=== PATIENT | female | born 1995 | race Two or more races ===

== ENCOUNTER 2019-10-24 10:37 | Emergency (ER) | payer BC ==
[~2019-10-24] VITALS: Ht 175.3 cm; Wt 74.7 kg
--- NOTE | 2019-10-24 11:10 | RAD ---
EXAM: CHEST AP ONLY INDICATION: Reason: sob / Spl. Instructions: / History: . TECHNIQUE: Single view COMPARISON: None FINDINGS: The heart size is normal. The great vessels appear unremarkable. There is no hilar or mediastinal mass. The lungs are clear. There is no pleural effusion or pneumothorax. There are no significant osseous abnormalities. IMPRESSION: No active cardiopulmonary disease. Electronically signed by: Vivek Mitchell MD (10/24/2019 11:07 AM) [id number]
[2019-10-24 11:38] LABS: BASO % 0 % (0-3); EOS % 0 % (0-3); HEMATOCRIT 41.5 % (36.0-47.0); HEMOGLOBIN 13.9 g/dL (12.0-15.5); LYMPH # 1.6 x10^3/uL (1.0-4.8); LYMPH % 23 % (24-48); MEAN CORPUSCULAR HEMOGLOBIN 30 pg (25-35); MEAN CORPUSCULAR HGB CONC 34 g/dL (31-37); MEAN CORPUSCULAR VOLUME 88 fL (79-100); MONO # 0.3 x10^3/uL (0.0-1.1); MONO % 5 % (0-9); NEUT # 4.9 x10^3uL (1.8-7.7); NEUT % 72 % (31-73); PLATELET COUNT 193 x10^3/uL (140-400); RED BLOOD COUNT 4.71 x10^6/uL (3.50-5.40); RED CELL DISTRIBUTION WIDTH 13.5 % (11.5-14.5); WHITE BLOOD COUNT 6.8 x10^3/uL (4.0-11.0)
[2019-10-24 11:48] LABS: CALCIUM 9.1 mg/dL (8.5-10.1); GFR 82.4; POTASSIUM 3.7 mmol/L (3.5-5.1)
[2019-10-24 11:53] LABS: ALBUMIN 4.2 g/dL (3.4-5.0); TOTAL BILIRUBIN 1.5 mg/dL (0.2-1.0); TOTAL PROTEIN 8.4 g/dL (6.4-8.2)
--- NOTE | 2019-10-24 11:58 | PHYS DOC ---
Past History Past Medical History: No Pertinent History Past Surgical History: Other Additional Past Surgical Histo: ACHILLES LEFT Alcohol Use: Rarely Adult General Chief Complaint Chief Complaint: SHORTNESS OF BREATH HPI HPI Patient is a 24 year old previously healthy female who presents with chest pressure and shortness of breath. Patient states that 5 days ago she started having this substernal chest pain. This is progressively gotten worse and initially was aching and now feels like heavy pressure on her chest. She is never had anything like this previously. She has some associated shortness of breath and feels very nervous and anxious. She states it never goes away. She denies any cough, fever, sore throat, URI symptoms. Review of Systems Review of Systems General: Denies fever, chills, sweats, fatigue Eyes: Denies drainage, blurred vision, eye redness HENT: Denies rhinorrhea, sore throat, earache Respiratory: Denies cough, wheezing reports shortness of breath Cardiac: Denies edema, palpitations. Reports chest pain GI: Denies abdominal pain, Nausea, vomiting MSK: Denies back pain, neck pain Skin: Denies rash, jaundice Neuro: Denies headache, dizziness Psychiatric: Denies SI/HI Allergies Allergies Allergies Coded Allergies Type Severity Reaction Last Updated Verified No Known Drug Allergies 10/24/19 No Physical Exam Physical Exam General: Awake, alert, NAD. Well Nourished, well hydrated. Cooperative HEENT: Atraumatic, EOMI, PERRL, airway patent, moist oral mucosa Neck: Supple, trachea midline Respiratory: CTA bilaterally, normal effort, no wheezing/crackles CV: Tachycardic, no murmur, cap refill <2 GI: Soft, nondistended, nontender, no masses MSK: No obvious deformities Skin: Warm, dry, intact Neuro: A&O x3, speech NL, sensory and motor grossly intact, no focal deficits Psych: Anxious, not suicidal or homicidal Current Patient Data Vital Signs Vital Signs Date Time Temp Pulse Resp B/P (MAP) Pulse Ox O2 Delivery O2 Flow Rate FiO2 10/24/19 11:22 92 20 124/78 (93) 98 Room Air 10/24/19 10:50 98.6 Lab Results Laboratory Tests Test 10/24/19 11:20 10/24/19 11:37 White Blood Count 6.8 x10^3/uL (4.0-11.0) Red Blood Count 4.71 x10^6/uL (3.50-5.40) Hemoglobin 13.9 g/dL (12.0-15.5) Hematocrit 41.5 % (36.0-47.0) Mean Corpuscular Volume 88 fL (79-100) Mean Corpuscular Hemoglobin 30 pg (25-35) Mean Corpuscular Hemoglobin Concent 34 g/dL (31-37) Red Cell Distribution Width 13.5 % (11.5-14.5) Platelet Count 193 x10^3/uL (140-400) Neutrophils (%) (Auto) 72 % (31-73) Lymphocytes (%) (Auto) 23 % (24-48) L Monocytes (%) (Auto) 5 % (0-9) Eosinophils (%) (Auto) 0 % (0-3) Basophils (%) (Auto) 0 % (0-3) Neutrophils # (Auto) 4.9 x10^3uL (1.8-7.7) Lymphocytes # (Auto) 1.6 x10^3/uL (1.0-4.8) Monocytes # (Auto) 0.3 x10^3/uL (0.0-1.1) Eosinophils # (Auto) 0.0 x10^3/uL (0.0-0.7) Basophils # (Auto) 0.0 x10^3/uL (0.0-0.2) Sodium Level 137 mmol/L (136-145) Potassium Level 3.7 mmol/L (3.5-5.1) Chloride Level 101 mmol/L (98-107) Carbon Dioxide Level 24 mmol/L (21-32) Anion Gap 12 (6-14) Blood Urea Nitrogen 4 mg/dL (7-20) L Creatinine 1.0 mg/dL (0.6-1.0) Estimated GFR (Cockcroft-Gault) 82.4 BUN/Creatinine Ratio 4 (6-20) L Glucose Level 124 mg/dL (70-99) H Calcium Level 9.1 mg/dL (8.5-10.1) Total Bilirubin Pending Aspartate Amino Transferase (AST) Pending Alanine Aminotransferase (ALT) Pending Alkaline Phosphatase Pending Total Protein Pending Albumin Pending Albumin/Globulin Ratio Pending POC Urine HCG, Qualitative hcg negative (Negative) EKG EKG [] Radiology/Procedures Radiology/Procedures [] Course & Med Decision Making Course & Med Decision Making Pertinent Labs and Imaging studies reviewed. (See chart for details) Patient is 24-year-old female presents to the emergency room with chest tightness and shortness of breath. Patient is tachycardic but otherwise has normal vitals. She does not have any other infectious symptoms. CBC, BMP, d- dimer, chest x-ray, test were ordered. Dragon Disclaimer Dragon Disclaimer This electronic medical record was generated, in whole or in part, using a voice recognition dictation system. Departure Departure: Impression: Primary Impression: Shortness of breath Additional Impression: Chest pain Disposition: 01 HOME/RESIDENCE PRIOR TO ADM Condition: STABLE Referrals: PCP,UNKNOWN (PCP) Justification of Admission: Justification of Admission: Justification of Admission Dx: No Problem Qualifiers RAYMON GONCALVES MD Oct 24, 2019 11:58
[2019-10-24 11:59] LABS: C REACTIVE PROTEIN 1.4 mg/L (0-3.3)
[2019-10-24 12:19] VITALS: BP 115/74
[2019-10-24] MEDS ORDERED: hydrOXYzine HCL 25 MG TABLET PO ONE (12:30)
[2019-10-24] MEDS ORDERED: KETOROLAC 30 MG/ML VIAL. IVP ONE (13:00)
[2019-10-24] MEDS ORDERED: KETOROLAC 30 MG/ML VIAL. ONE (13:03)
[2019-10-24] MEDS ORDERED: NAPR-682 PO (14:28)
[2019-10-24] MEDS ORDERED: ALBU2.5V8 IH (14:28)
--- NOTE | 2019-10-25 20:51 | EKG ---
[address] [address] Test Date: 2019-10-24 Test Time: 11:13:11 Pat Name: KHADRA PITTMAN Department: Room: Gender: F Telephone [employer]: : [id number] Requested By: RAYMON GONCALVES Order Number: [id number] Reading MD: Measurements Intervals Procious Rate: 107 P: 53 NE: 126 QRS: 79 QRSD: 80 T: -34 QT: 328 QTc: 443 Interpretive Statements SINUS TACHYCARDIA T ABNORMALITY IN INFERIOR LEADS ABNORMAL ECG RI6.02 No previous ECG available for comparison
== END 2019-10-24 14:45 | disposition home or self-care (01) ==
LOC: ER 10:37
DX: R07.2 Precordial pain (principal); R06.02 Shortness of breath
CPT/HCPCS: 36415; 71045; 80053; 81025; 82550; 83615; 85025; 85379; 86140; 93005; 96374; 99285; J1885